=== PATIENT | female | born 1990 | race American Indian/Alaskan Native ===

== ENCOUNTER 2016-12-03 17:42 | Emergency (ER) | payer BC, OTHER ==
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
[2016-12-03] MEDS: TORADOL IM ONE (20:35)
[2016-12-03] MEDS: MOTRIN PO ONE (21:17)
[2016-12-03 22:15] VITALS: BP 111/63
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
== END 2016-12-03 23:15 | disposition home or self-care (01) ==
LOC: ED 17:42
DX: S16.1XXA Strain of muscle, fascia and tendon at neck level, initial encounter (principal); S39.012A Strain of muscle, fascia and tendon of lower back, initial encounter; V49.9XXA Car occupant (driver) (passenger) injured in unspecified traffic accident, initial encounter; Y93.89 Activity, other specified; Y99.8 Other external cause status; Y92.488 Other paved roadways as the place of occurrence of the external cause
CPT/HCPCS: 72040; 72100; 99283; J1885